=== PATIENT | male | born 1965 | race Caucasian/White ===

== ENCOUNTER → 2016-12-09 | Outpatient (CLI) | payer OTHER ==
--- NOTE | ~2016-12-09 | US37 ---
[facility] A Service of [facility] RADIOLOGY TEXT RESULTS PATIENT: RAVI ZHANG LOCATION: CNIV : 65 UNIT #: [id number] AGE: [address]: Linwood Martinez MD SEX: M ORDER DR: [id number] [facility]. [place], [place] [address] [id number] O MR#: [id number] Acc #: [id number] NAME: RAVI ZHANG : 1965 SEX: M STUDY DATE/TIME: 12/09/2016 14:01 UNIT: CNIV ROOM: STUDY DESCRIPTION: US Carotid W/Doppler Bilateral Attending Physician: Miko Martinez M.D. Ordering Physician: Miko Martinez M.D. Primary Care Physician: Russell Adams M.D. MEDICAL IMAGING REPORT This report is preliminary unless electronic signature is present DATE OF EXAM 12/09/[address] Martinez REASON FOR EXAM Syncope. EXAM Bilateral carotid Doppler. FINDINGS The right common carotid, internal carotid, and external carotid arteries are patent. There is no significant plaque or intimal thickening throughout. The velocity in the common carotid artery is 83 cm/sec. Peak systolic velocity of the right proximal internal carotid artery is 62 cm/sec with an end-diastolic velocity of 12 cm/sec for an ICA:CCA ratio of 0.75. External carotid artery with a velocity of 109 cm/sec. The vertebral artery is visualized with antegrade flow. The left common carotid, internal carotid and external carotid arteries are patent without plaque or intimal thickening throughout. The velocity of the common carotid artery is 82 cm/sec. Peak systolic velocity of the left proximal internal carotid artery is 74 cm/sec with an end-diastolic velocity of 13 cm/sec for an ICA:CCA ratio of 0.9. External carotid artery with a velocity of 118 cm/sec. The vertebral artery is visualized with antegrade flow. IMPRESSION 1. Normal appearance without stenosis of the right and left internal carotid arteries. [facility] A Service of [facility] RADIOLOGY TEXT RESULTS PATIENT: RAVI ZHANG LOCATION: CNIV : 65 UNIT #: [id number] AGE: [address]: Linwood Martinez MD SEX: M ORDER DR: 2. No stenosis of the external carotid arteries. 3. Antegrade flow of the vertebral arteries. Dictated by... Beata Colbert M.D. THIS IS AN ELECTRONICALLY VERIFIED REPORT Beata Colbert M.D. at 12/17/2016 11:01 AM YULISSA/[email or web address] TD: 12/09/2016 22:54 JOB #: [id number] MEDICAL IMAGING REPORT Page 1 of 1 COPY
== END | disposition home or self-care (01) ==
LOC: CNIV 13:33
DX: R55 Syncope and collapse (principal); I25.10 Atherosclerotic heart disease of native coronary artery without angina pectoris
CPT/HCPCS: 93880